=== PATIENT | female | born 1985 | race Hispanic/Latino ===

== ENCOUNTER 2018-02-10 06:19 | Day surgery (SDC) | payer OTHER ==
[2018-02-09 10:48] VITALS: BMI 23.6
[2018-02-10] MEDS ORDERED: Morphine 10 MG/ML VIAL ONE (06:35)
[2018-02-10] MEDS ORDERED: Bupivacaine/Epinephrine 0.25% 30 ML VIAL ONE (06:54)
[2018-02-10] MEDS ORDERED: Midazolam HCl 2 mg/2 ml Vial ONE (07:13)
[2018-02-10] MEDS ORDERED: CEFAZOLIN/Water 2 GM/20 ML SYRINGE ONE (07:13)
[2018-02-10] MEDS ORDERED: Levofloxacin 500 mg/D5W 100 ml Premix Bag ONE (07:21)
[2018-02-10] MEDS ORDERED: Bacitracin Zinc Ointment 30 gm TUBE ONE (08:09)
[2018-02-10] MEDS ORDERED: Promethazine HCl 25 MG/ML VIAL ONE (08:57)
[2018-02-10] MEDS ORDERED: Ondansetron HCl/PF 4 MG/2 ML Vial ONE (13:41)
[2018-02-10] MEDS ORDERED: Dexamethasone 20 MG/5 ML VIAL ONE (13:41)
[2018-02-10] MEDS ORDERED: Lidocaine 1% PF 5 ML VIAL ONE (13:41)
[2018-02-10] MEDS ORDERED: PROPOFOL 200 MG/20 ML VIAL ONE (13:41)
--- NOTE | 2018-02-11 10:26 | OP ---
DATE OF PROCEDURE: 02/10/2018 PREOPERATIVE DIAGNOSIS: Skin cyst multiple scalp. POSTOPERATIVE DIAGNOSIS: Skin cyst multiple scalp. PROCEDURE: Excision of skin cyst scalp 1.5 x 8 cysts. SURGEON: Carlos Eduardo Lin M.D. ANESTHESIA: General. ESTIMATED BLOOD LOSS: Minimal. COMPLICATIONS: None. SPECIMEN: There were 8 cysts. TECHNIQUE: The patient was taken to the operating room and placed supine on the table. After general anesthetic was obtained, the areas overlying the palpable cyst to her scalp were all shaved, prepped and draped in sterile fashion. Transverse incision was made over each cyst. Each cyst was approximately 1.5 cm in size. A few of the cysts were able to be removed in pair from a single incision. All wounds were irrigated. Local anesthetic was applied in all wounds and scalp were closed using a stapler. The patient is en route to recovery in stable condition. All instrument counts, needle counts, lap counts are correct. [facility]
== END 2018-02-10 12:25 | disposition home or self-care (01) ==
LOC: SDC 06:19
PROVIDERS: ATTEND Surgery
PROC: 0HB0XZZ Excision of Scalp Skin, External Approach (ICD-10-PCS; principal; 2018-02-10)
DX: L72.11 Pilar cyst (principal); Z88.0 Allergy status to penicillin; Z91.018 Allergy to other foods
CPT/HCPCS: 88304; 96374; J1100; J1956; J2001; J2250; J2270; J2405; J2550; J2704